=== PATIENT | female | born 1950 | race American Indian/Alaskan Native ===

== ENCOUNTER 2016-12-05 18:37 | Emergency (ER) | payer MEDICARE ==
[2016-12-06 09:00] VITALS: BP 110/70
[2016-12-06] MEDS ORDERED: ZOFRAN ONE (09:40)
[2016-12-06] MEDS ORDERED: ZOFRAN IV ONE (09:45)
[2016-12-06] MEDS ORDERED: MORPHINE IM ONE (10:37)
--- NOTE | 2016-12-06 10:42 | Emergency Department Report ---
HPI - General Chief Complaint: Headache Time Seen by Provider: 12/06/16 09:32 - HPI HPI: Patient is a 65-year-old female presents for evaluation of headache. The patient reports left-sided, aching in quality headache, 10 out of 10 in severity , exacerbated with bright lights, since injury 5 days ago. She states that she was at a [employer] when a pack of water bottles fell off of a shelf and struck the left side of her head and left shoulder. She has experienced on and off pain since. She reports associated intermittent nausea and nonbilious, nonbloody emesis, also for the past 5 days. The patient denies fever, chest pain, dyspnea, abdominal pain, back pain, vision or hearing changes, smell or taste changes, paresthesias, facial drooping, slurred speech, seizure-like activity, urine or bowel incontinence or retention, or other focal neurological deficit. ED Past Medical Hx - Past Medical History Previous Medical History?: Yes Hx Hypertension: Yes (> 20 YRS) Hx Diabetes: Yes Hx Renal Disease: Yes (STAGE IV RENAL DISEASE) Hx Arthritis: Yes Hx Headaches / Migraines: Yes (MIGRAINES IN THE PAST) Hx HIV: No - Surgical History Past Surgical History?: Yes - Social History Smoking Status: Never Smoker Substance Use Type: None - Medications Home Medications: Home Medications Medication Instructions Recorded Confirmed Last Taken Type Amlodipine Besylate 10 mg PO QDAY 12/23/15 12/06/16 Unknown History Atorvastatin Calcium 40 mg PO QDAY 12/23/15 12/06/16 Unknown History Bupropion HCl [buPROPion Sr] 150 mg PO BID 12/23/15 12/06/16 Unknown History Furosemide 40 mg PO QDAY 12/23/15 12/06/16 1 Day Ago History 40mg Insulin Glargine,Hum.rec.anlog 62 units SQ BID 12/23/15 12/06/16 1 Day Ago History [Lantus Solostar] 60 Isosorbide Dinitrate 20 mg PO Q12HR 12/23/15 12/06/16 Unknown History Metoprolol Succinate 100 mg PO BID 12/23/15 12/06/16 Unknown History Montelukast Sodium 10 mg PO QDAY 12/23/15 12/06/16 Unknown History Terazosin HCl 2 mg PO HS 12/23/15 12/06/16 Unknown History Insulin Lispro [Humalog 100 25 units SQ TID 06/21/16 12/06/16 1 Day Ago History UNITS/ML Kwikpen] 25 units Omeprazole 20 mg PO BID 06/21/16 12/06/16 Unknown History HYDROcodone/APAP 7.5-325 [[place] 1 each PO Q8HR PRN #15 tablet 12/06/16 Unknown Rx 7.5-325 mg TAB] Lidocaine Topical 5% [Xylocaine 0 gm TP BID 12/06/16 12/06/16 Unknown History Topical 5%] Lisinopril [Zestril] 20 mg PO QDAY 12/06/16 12/06/16 Unknown History Ondansetron [Zofran TAB] 4 mg PO Q8HR PRN #14 tablet 12/06/16 Unknown Rx Sodium Bicarbonate 650 mg PO BID 12/06/16 12/06/16 Unknown History hydrOXYzine HCL [Atarax] 50 mg PO Q6H 12/06/16 12/06/16 Unknown History ED Review of Systems ROS: Stated complaint: ACCIDENT/HEADACHE/NECK/BACK PAIN Other details as noted in HPI Constitutional: denies: fever ENT: denies: throat or neck pain Respiratory: denies: cough, shortness of breath Cardiovascular: denies: chest pain Endocrine: denies unexplained weight loss or gain Gastrointestinal: denies: abdominal pain, nausea Genitourinary: denies: dysuria Musculoskeletal: denies: leg swelling Skin: denies: rash Neurological: reports headache Hematological/Lymphatic: denies: easy bleeding or easy bruising Psych: denies sadness or hopelessness Physical Exam - Physical Exam Vital Signs: Vital Signs 12/05/16 12/06/16 12/06/16 20:20 02:39 08:57 Temperature 98.5 F 98.0 F 97.9 F Pulse Rate 77 74 68 Respiratory 20 18 20 Rate Blood Pressure 186/89 168/73 Blood Pressure 110/70 [Right] O2 Sat by Pulse 100 100 99 Oximetry Physical Exam: General: well-nourished, well-developed, no acute distress, patient is morbidly obese Head: Normocephalic, atraumatic Eyes: normal sclera ENT: Mucous membranes are pink and moist Neck: trachea midline, neck supple, No neck stiffness, no cervical adenopathy Respiratory: Breath sounds equal bilaterally, no wheezing, rales, or rhonchi Cardio: S1 and S2 present, no murmurs, rubs, gallops, capillary refill is brisk Abdomen: Normoactive bowel sounds, soft abdomen, no rigidity, no guarding or rebound tenderness Musc: No pitting edema Skin: No rash Neuro: Alert oriented 3, no facial drooping, normal speech, no pronator drift, no obvious gross sensation or motor deficits in the arms or legs, reflexes 2+ symmetric on DTR testing bilaterally, no obvious coordination deficit with finger to nose testing, no obvious neuro deficits Psych: Normal affect ED Course Vital Signs 12/05/16 12/06/16 12/06/16 20:20 02:39 08:57 Temperature 98.5 F 98.0 F 97.9 F Pulse Rate 77 74 68 Respiratory 20 18 20 Rate Blood Pressure 186/89 168/73 Blood Pressure 110/70 [Right] O2 Sat by Pulse 100 100 99 Oximetry ED Medical Decision Making - Medical Decision Making The patient was seen and examined by myself. The patient is placed on a shelter monitor and continuous pulse ox. On initial evaluation, the patient was found to be in no distress. Although there are no neuro deficits or other findings on examination concerning for acute intracranial disease process, and as the patient states that symptoms are consistent with previous headaches, a CAT scan of the head will not be obtained at this time. IV access is established and the patient is given an IV dose of Zofran for nausea and morphine for her pain. The patient was reevaluated and reported that their symptoms were markedly improved. The patient is stable for discharge with outpatient follow-up. The patient is given follow-up and return instructions. The patient expressed understanding and agreed with the plan. The patient is discharged in stable condition. Critical care attestation.: If time is entered above; I have spent that time in minutes in the direct care of this critically ill patient, excluding procedure time. ED Disposition Clinical Impression: Acute post-traumatic headache, not intractable, Neck pain on left side Disposition: DISCHARGED TO HOME OR SELFCARE Is pt being admited?: No Does the pt Need Aspirin: No Condition: Stable Instructions: Concussion (ED), Post Concussion Syndrome (ED), Acute Headache ( ED), Musculoskeletal Pain (ED) Additional Instructions: Do not take more than the prescribed dose of pain medicine, or combine or take the pain medicine prescribed to you today with other pain medicine, sleeping medicine or other sedatives, or with alcohol, as doing so may cause central nervous system sedation and respiratory depression, and potentially cause you to stop breathing and . Additionally, do not drive a vehicle, operate heavy machinery, or engage in any activity that would cause harm to yourself or others after taking the pain medicine prescribed to you. Prescriptions: HYDROcodone/APAP 7.5-325 [[place] 7.5-325 mg TAB] 1 each PO Q8HR PRN #15 tablet PRN Reason: Pain Ondansetron [Zofran TAB] 4 mg PO Q8HR PRN #14 tablet PRN Reason: Nausea Referrals: TOMMY NICOLE MD [Primary Care Provider] - 3-5 Days Forms: Work/School Release Form(ED) Time of Disposition: 10:38
[2016-12-06] MEDS ORDERED: MORPHINE IV ONE (10:45)
== END 2016-12-06 11:08 | disposition home or self-care (01) ==
LOC: ED 18:37
DX: G44.319 Acute post-traumatic headache, not intractable (principal); M54.2 Cervicalgia; G43.909 Migraine, unspecified, not intractable, without status migrainosus; M19.90 Unspecified osteoarthritis, unspecified site; I12.0 Hypertensive chronic kidney disease with stage 5 chronic kidney disease or end stage renal disease; E11.22 Type 2 diabetes mellitus with diabetic chronic kidney disease; N18.5 Chronic kidney disease, stage 5; Z79.4 Long term (current) use of insulin
CPT/HCPCS: 96374; 96375; 99283; J2270; J2405

== ENCOUNTER 2016-12-28 15:05 | Outpatient (CLI) | payer MEDICARE ==
--- NOTE | 2016-12-28 16:08 | Mammography Report ---
BILATERAL MAMMOGRAM: FINDINGS: The breasts are almost entirely fat (<25% glandular). No mass, distortion, suspicious calcification, or skin change is seen. Prior exams unavailable. CAD was utilized. IMPRESSION: Negative mammogram. There is no mammographic evidence of malignancy. RECOMMENDATION: Follow-up per ACS guidelines. BI-RADS CATEGORY: 1 = Negative ACR BI-RADS MAMMOGRAPHIC CODES: 0 = Needs additional imaging evaluation; 1 = Negative; 2 = Benign; 3 = Probably benign; 4 = Suspicious; 5 = Malignant; 6 = Known biopsy-proven malignancy COMMENT: 1. Dense breast tissue, i.e., adenosis, fibrocystic changes, etc., may obscure an underlying neoplasm. 2. Approximately 10% of cancers are not detected with mammography. 3. A negative mammography report should not delay biopsy if a clinically suspicious mass is present. COMMENT: Patient follow-up letters are generated in [employer].
--- NOTE | 2016-12-30 17:14 | Mammography Report ---
BONE DENSITY STUDY: DEFINITIONS: BMD = Bone Mineral Density T-score = BMD related to mean peak bone mass of young adult (mean expressed in Standard Deviation) Z-score = Age matched BMD expressed in SD World Health Organization (WHO) Diagnostic Criteria Normal T-score > -1 SD Osteopenia T-score between -1 and -2.4 SD Osteoporosis T-score -2.5 SD or below FINDINGS: The left forearm was evaluated. Other areas could not be performed due to the patient's weight. The average bone density is 0.566 with a T-value score of zero. IMPRESSION: Follow-up with referring physician. NOTE: BMD is not the only risk factor for fracture; also consider factors such as the patient's age, risk of falling, previous osteoporotic fracture, family history of osteoporotic fractures, current smoker, and low body weight. Ghotra's triangle is a region of interest in femur, predominantly of trabecular bone. It is not a true anatomic site, and ISCD does not recommend its use clinically.
== END 2016-12-28 15:06 | disposition home or self-care (01) ==
LOC: MAMMO 15:05
PROVIDERS: ATTEND Family Medicine
DX: Z12.31 Encounter for screening mammogram for malignant neoplasm of breast (principal); Z13.820 Encounter for screening for osteoporosis; M81.0 Age-related osteoporosis without current pathological fracture
CPT/HCPCS: 77081; G0202; 77067

== ENCOUNTER 2017-05-26 16:31 | Emergency (ER) | payer MEDICARE ==
[2017-05-26] MEDS ORDERED: D50W (25GM) IV ONE (16:45)
[2017-05-26] MEDS ORDERED: SODIUM BICARBONATE IV ONE (16:45)
[2017-05-26] MEDS ORDERED: ADRENALIN ONE (16:45)
--- NOTE | 2017-05-26 17:25 | Emergency Department Report ---
ED Shortness of Breath HPI - General Stated Complaint: CARDIAC ARREST Time Seen by Provider: 05/26/17 17:15 Source: EMS - History of Present Illness Initial Comments: 66-year-old female with past medical history of CHF, COPD, diabetes, hypertension, morbid obesity presenting to the emergency department in cardiac arrest. Patient had 20 minutes of cardiac arrest time and had 3 rounds of epi enroute. Per EMS staff patient made a call to them for difficulty breathing. When they arrived patient was on her CPAP machine. They spent 30 minutes convincing patient comes to the ED however she refused and stated it was because she claustrophobic. When patient consented to being transported EMS loaded her from her CPAP to their CPAP machine that point patient heart rate decreased and was bradycardic and then into asystole/PA cardiac arrest. An attempt to intubate patient was making however EMS could not secure patient's airway. Patient was in PEA when she arrived in the ED. - Related Data Home Medications Medication Instructions Recorded Confirmed Last Taken Amlodipine Besylate 10 mg PO QDAY 12/23/15 12/06/16 Unknown Atorvastatin Calcium 40 mg PO QDAY 12/23/15 12/06/16 Unknown Bupropion HCl [buPROPion Sr] 150 mg PO BID 12/23/15 12/06/16 Unknown Furosemide 40 mg PO QDAY 12/23/15 12/06/16 1 Day Ago 40mg Insulin Glargine,Hum.rec.anlog 62 units SQ BID 12/23/15 12/06/16 1 Day Ago [Lantus Solostar] 60 Isosorbide Dinitrate 20 mg PO Q12HR 12/23/15 12/06/16 Unknown Metoprolol Succinate 100 mg PO BID 12/23/15 12/06/16 Unknown Montelukast Sodium 10 mg PO QDAY 12/23/15 12/06/16 Unknown Terazosin HCl 2 mg PO HS 12/23/15 12/06/16 Unknown Insulin Lispro [Humalog 100 25 units SQ TID 06/21/16 12/06/16 1 Day Ago UNITS/ML Kwikpen] 25 units Omeprazole 20 mg PO BID 06/21/16 12/06/16 Unknown Lidocaine Topical 5% [Xylocaine 0 gm TP BID 12/06/16 12/06/16 Unknown Topical 5%] Lisinopril [Zestril] 20 mg PO QDAY 12/06/16 12/06/16 Unknown Sodium Bicarbonate 650 mg PO BID 12/06/16 12/06/16 Unknown hydrOXYzine HCL [Atarax] 50 mg PO Q6H 12/06/16 12/06/16 Unknown Previous Rx's Medication Instructions Recorded Last Taken Type HYDROcodone/APAP 7.5-325 [[place] 1 each PO Q8HR PRN #15 tablet 12/06/16 Unknown Rx 7.5-325 mg TAB] Ondansetron [Zofran TAB] 4 mg PO Q8HR PRN #14 tablet 12/06/16 Unknown Rx Allergies Allergy/AdvReac Type Severity Reaction Status Date / Time IV DYE Allergy Shortness Uncoded 06/21/16 01:11 of Breath ED Review of Systems ROS: Stated complaint: CARDIAC ARREST Other details as noted in HPI Comment: Unobtainable due to pts medical conditions ED Past Medical Hx - Past Medical History Hx Hypertension: Yes Hx Diabetes: Yes Hx Renal Disease: Yes (STAGE IV RENAL DISEASE) Hx Arthritis: Yes Hx Headaches / Migraines: Yes (MIGRAINES IN THE PAST) Hx HIV: No - Social History Smoking Status: Never Smoker Substance Use Type: None - Medications Home Medications: Home Medications Medication Instructions Recorded Confirmed Last Taken Type Amlodipine Besylate 10 mg PO QDAY 12/23/15 12/06/16 Unknown History Atorvastatin Calcium 40 mg PO QDAY 12/23/15 12/06/16 Unknown History Bupropion HCl [buPROPion Sr] 150 mg PO BID 12/23/15 12/06/16 Unknown History Furosemide 40 mg PO QDAY 12/23/15 12/06/16 1 Day Ago History 40mg Insulin Glargine,Hum.rec.anlog 62 units SQ BID 12/23/15 12/06/16 1 Day Ago History [Lantus Solostar] 60 Isosorbide Dinitrate 20 mg PO Q12HR 12/23/15 12/06/16 Unknown History Metoprolol Succinate 100 mg PO BID 12/23/15 12/06/16 Unknown History Montelukast Sodium 10 mg PO QDAY 12/23/15 12/06/16 Unknown History Terazosin HCl 2 mg PO HS 12/23/15 12/06/16 Unknown History Insulin Lispro [Humalog 100 25 units SQ TID 06/21/16 12/06/16 1 Day Ago History UNITS/ML Kwikpen] 25 units Omeprazole 20 mg PO BID 06/21/16 12/06/16 Unknown History HYDROcodone/APAP 7.5-325 [[place] 1 each PO Q8HR PRN #15 tablet 12/06/16 Unknown Rx 7.5-325 mg TAB] Lidocaine Topical 5% [Xylocaine 0 gm TP BID 12/06/16 12/06/16 Unknown History Topical 5%] Lisinopril [Zestril] 20 mg PO QDAY 12/06/16 12/06/16 Unknown History Ondansetron [Zofran TAB] 4 mg PO Q8HR PRN #14 tablet 12/06/16 Unknown Rx Sodium Bicarbonate 650 mg PO BID 12/06/16 12/06/16 Unknown History hydrOXYzine HCL [Atarax] 50 mg PO Q6H 12/06/16 12/06/16 Unknown History ED Physical Exam - General Limitations: Other (unresponsive) - Head Head exam: Present: atraumatic, normocephalic - Eye Eye exam: Present: other (pupils fixed and dilated bilaterally) - Respiratory Respiratory exam: Present: normal lung sounds bilaterally (post intubation) - Cardiovascular Cardiovascular Exam: Present: other (patient in asystole/PEA) - GI/Abdominal GI/Abdominal exam: Present: soft, other (morbid obesity) - Rectal Rectal exam: Present: deferred - Extremities Exam Extremities exam: Present: other (no evidence of trauma) - Neurological Exam Neurological exam: Present: other (gCS 3 patient unresponsive) - Skin Skin exam: Present: dry - Intubation Time Out Performed: Yes Size: 4 Assist Device Used: other (glide scope) ET Tube Size: 7.5 Tube Secured Depth (cm): 24 Tube Secured Location: teeth Tube Placement Confirmation: visualized tube passing t, equal breath sounds bilat, no breath sounds over epi, confirmation by capnometr Patient Tolerated Procedure: well, no complications ED Medical Decision Making - Medical Decision Making 6-year-old female presenting to the emergency department in cardiac arrest. Likely cardiac arrest secondary to respiratory failure, patient made a call to EMS shortly prior to decompensating that she was short of breath and was on her CPAP and that her symptoms had not improved. Please see code sheet for specific medications given. Given PEA/ASYSTOLE All H /Ts were addressed. Pt was intubated successfully as appreciated by direct passage of tube through cords on glidescope, BL chest rise, no sound over the epigastrum , CO2 color change after intubation, there was no ROSC. Pt time of was 1645, lack of cardiac activity was appreciated on ultrasound Critical Care Time: Yes Critical care attestation.: If time is entered above; I have spent that time in minutes in the direct care of this critically ill patient, excluding procedure time. 45 minutes of critical care time that excludes time spent on billable procedures ED Disposition Clinical Impression: Cardiac arrest, COPD with acute exacerbation Disposition: DC-20 Is pt being admited?: No Does the pt Need Aspirin: No Condition: Undetermined Instructions: Chronic Obstructive Pulmonary Disease (ED) Referrals: PRIMARY CARE, [Primary Care Provider] - 3-5 Days
== END 2017-05-26 20:46 ==
LOC: ED 16:31
DX: I46.9 Cardiac arrest, cause unspecified (principal); J44.1 Chronic obstructive pulmonary disease with (acute) exacerbation; E11.22 Type 2 diabetes mellitus with diabetic chronic kidney disease; I13.0 Hypertensive heart and chronic kidney disease with heart failure and stage 1 through stage 4 chronic kidney disease, or unspecified chronic kidney disease; N18.4 Chronic kidney disease, stage 4 (severe); I50.9 Heart failure, unspecified; E66.01 Morbid (severe) obesity due to excess calories; G43.909 Migraine, unspecified, not intractable, without status migrainosus; M19.90 Unspecified osteoarthritis, unspecified site; Z91.041 Radiographic dye allergy status
CPT/HCPCS: 31500; 92950; 99291; J0171